=== PATIENT | male | born 1980 | race Caucasian/White ===

== ENCOUNTER 2019-05-30 06:43 | Day surgery (SDC) | payer OTHER ==
[2019-05-30] MEDS ORDERED: VERSED 5 MG/5 ML IV ONE (06:44)
[2019-05-30] MEDS ORDERED: DEMEROL 50 MG SDV IV ONE (06:44)
[2019-05-30 07:31] VITALS: O2SAT 97
--- NOTE | 2019-05-30 07:48 | HP ---
DATE OF SURGERY: 05/30/2019 ANTICIPATED PROCEDURE: EGD. HISTORY OF PRESENT ILLNESS: The patient has a clicking sensation in the throat, this is right in the lower part of the neck and presents for EGD. PAST MEDICAL HISTORY: ALLERGIES: SEE LIST. MEDICATIONS: See list. PAST SURGICAL HISTORY: Elbow surgery. Kidney surgery. SOCIAL HISTORY: Negative. FAMILY HISTORY: Negative. PHYSICAL EXAMINATION: VITAL SIGNS: Normal. CHEST: Clear. COR: Regular. IMPRESSION: PLAN: Evaluation of a clicking sensation in the neck with an EGD.
[2019-05-30] MEDS ORDERED: Lactated Ringers 1,000 ML IV SCH (08:00)
--- NOTE | 2019-05-30 09:57 | OP ---
SURGERY DATE/TIME: 05/30/2019 0840 PREOPERATIVE DIAGNOSIS: Follow up Velasco's. 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 PROCEDURE: EGD. Biopsy of Velasco's x2. SURGEON: Ming Carmona M.D. ANESTHESIA: IV sedation 15 minutes titrated monitored. COMPLICATIONS: None. CONDITION: Stable. INDICATION: A patient requiring evaluation. DESCRIPTION OF PROCEDURE: Taken to the endoscopy suite. IV sedation titrated and monitored. Oximetry kept over 90%. Comfort level satisfactory. Scope introduced. The pharyngoesophageal junction normal. The esophagus is normal down to gastroesophageal junction. There was 1 cm rim of esophagitis grade II. There was a lip of Velasco's posterior coming out nearly 2 cm. Two kiosk sales representative biopsies obtained. The esophagus was cold biopsied x2. Biopsy sites were satisfactory. The fundus, body and antrum satisfactory. Pylorus was open. Duodenal bulb second portion scope advanced well down into the duodenum. The scope is then returned. No hiatal hernia was demonstrated today. Scope withdrawn. The patient tolerated the procedure satisfactorily. Follow up in the office for biopsy results.
[2019-05-30 13:51] VITALS: BP 150/81; PULSE 75
== END 2019-05-30 09:55 | disposition home or self-care (01) ==
LOC: SDC 06:43
PROVIDERS: ATTEND Surgery
DX: Z09 Encounter for follow-up examination after completed treatment for conditions other than malignant neoplasm (principal); K21.9 Gastro-esophageal reflux disease without esophagitis; K22.70 Barrett's esophagus without dysplasia; R09.89 Other specified symptoms and signs involving the circulatory and respiratory systems
CPT/HCPCS: 88305; 94250; J2175; J2250

== ENCOUNTER 2022-11-03 08:21 | Day surgery (SDC) | payer OTHER ==
--- NOTE | 2022-11-03 07:42 | HP ---
DATE OF SURGERY: 11/03/2022 HISTORY OF PRESENT ILLNESS: The patient is a 42-year-old male who presents with complaints of severe reflux and possible Velasco's esophagus. It looks like the patient has been taking some Nexium. He had an EGD about a year and a half ago. He gets one about every three years. PAST MEDICAL HISTORY: Gastroesophageal reflux disease, asthma, allergic rhinitis. PAST SURGICAL HISTORY: Left kidney donor. ALLERGIES: NKDA. POLLEN. MOLD. MEDICATIONS: Zegerid. FAMILY HISTORY: Prostate cancer, bladder cancer. SOCIAL HISTORY: Occasional alcohol. REVIEW OF SYSTEMS: CONSTITUTIONAL: Denies fever or chills. CHEST: Denies shortness of breath. CVS: Denies chest pain. ABDOMEN: Denies abdominal pain. Reports epigastric pain. PHYSICAL EXAMINATION: GENERAL: No acute distress. CHEST: Nonlabored. No shortness of breath. CVS: Regular rate and rhythm. ABDOMEN: Soft. IMPRESSION: Severe reflux, epigastric pain, feeling of throat fullness. \ PLAN: EGD with Dr. Ming Carmona. As dictated by Dolores Vigil NP.
[~2022-11-03 08:21] MED LIST: Lactated Ringers 1,000 ML IV SCH
[2022-11-03] MEDS ORDERED: Lactated Ringers 1,000 ML IV ONE (08:48)
[2022-11-03] MEDS ORDERED: Xylocaine-Mpf 2% 5 Ml Vial ONE (11:15)
[2022-11-03] MEDS ORDERED: Versed 2 MG/2 ML Injection ONE (11:15)
[2022-11-03] MEDS ORDERED: DIPRIVAN 200 MG/20 ML IV ONE (11:15)
[2022-11-03] MEDS ORDERED: Decadron 4 MG INJ ONE (11:21)
[2022-11-03] MEDS ORDERED: Zofran 4 MG/2 ML VIAL ONE (11:21)
[2022-11-03 12:09] VITALS: O2SAT 97
[2022-11-03 12:18] VITALS: BP 145/93; PULSE 69
--- NOTE | 2022-11-22 15:40 | OP ---
SURGERY DATE/TIME: 11/03/2022 1128 PREOPERATIVE DIAGNOSIS: Epigastric pain. POSTOPERATIVE DIAGNOSES: Grade 2/3 gastroesophageal reflux disease. PROCEDURES: EGD with cold biopsy of antrum. SURGEON: Ming Carmona M.D. ANESTHESIA: MAC. COMPLICATIONS: None. CONDITION: Stable. INDICATION: The patient has epigastric discomfort. DESCRIPTION OF PROCEDURE: Taken to endoscopy. Scope introduced. Pharyngoesophageal junction normal. Esophagus normal down to gastroesophageal junction. Grade 2 over 3 gastroesophageal reflux disease was present. No hiatal hernia. Fundus, body and antrum satisfactory. Pylorus satisfactory. Duodenal bulb satisfactory. Second portion satisfactory. Scope pulled back into the stomach looking at the hiatus. There was no hiatal hernia. Scope withdrawn. IMPRESSION: Grade 2/3 gastroesophageal reflux disease otherwise satisfactory EGD with cold biopsy done.
== END 2022-11-03 12:28 | disposition home or self-care (01) ==
LOC: SDC 08:21
PROVIDERS: ATTEND Surgery
DX: K21.9 Gastro-esophageal reflux disease without esophagitis (principal); R10.13 Epigastric pain; Z80.52 Family history of malignant neoplasm of bladder; Z80.42 Family history of malignant neoplasm of prostate
CPT/HCPCS: 88305; J1100; J2250; J2405; J2704

== ENCOUNTER 2024-06-17 05:57 | Day surgery (SDC) | payer OTHER ==
[2024-06-17 06:20] VITALS: RESP 18
[2024-06-17] MEDS ORDERED: Xylocaine-Mpf 2% 5 Ml Vial ONE (07:15)
[2024-06-17] MEDS ORDERED: Versed 2 MG/2 ML Injection ONE (07:15)
[2024-06-17] MEDS ORDERED: DIPRIVAN 200 MG/20 ML IV ONE ×2 (07:15→07:23)
[2024-06-17 08:01] VITALS: O2SAT 95
[2024-06-17 08:08] VITALS: BP 165/88; PULSE 68; TEMP 97.8
--- NOTE | 2024-06-18 13:47 | OP ---
SURGERY DATE/TIME: 06/17/2024 [id number] PREOPERATIVE DIAGNOSIS: Screening exam. POSTOPERATIVE DIAGNOSIS: Rectal polyp. PROCEDURE: Colonoscopy with cold forceps biopsy and removal of a polyp. SURGEON: Jarett Sinha MD ANESTHESIA: Medications were given by the anesthesia department. INDICATIONS: The patient is a 43-year-old white male presenting now for screening colonoscopy. He was appraised of the risks of the procedure including risk of perforation, phlebitis, untoward reaction to medication, bleeding, and missed lesions. The patient verbalized his understanding and desire to have procedure performed. DESCRIPTION OF PROCEDURE AND FINDINGS: The patient was given medication by the anesthesia department and had continuous pulse oximetry, ECG monitoring, intermittent blood pressure monitoring, and end-tidal CO2 monitoring during the examination. He was placed in the left lateral decubitus position. Digital rectal examination was performed and revealed normal anal sphincter tone, no masses, and a normal prostate. The flexible Olympus videocolonoscope was used to intubate the rectum. A view of the colon was developed sequentially to the cecum. Upon insertion and withdrawal was noted a polyp which was found on retroflexed view in the rectum. This was destroyed using multiple passes of a cold forceps biopsy instrument. With no other mucosal lesions being encountered, the scope was removed. The patient tolerated the procedure well and was sent back to outpatient recovery in good condition. The prep was noted to be good.
== END 2024-06-17 08:13 | disposition home or self-care (01) ==
LOC: SDC 05:57
PROVIDERS: ATTEND Family Medicine
DX: Z12.11 Encounter for screening for malignant neoplasm of colon (principal); K62.1 Rectal polyp
CPT/HCPCS: J2250; J2704